=== PATIENT | female | born 1990 | race Hispanic/Latino ===

== ENCOUNTER 2022-03-14 01:45 | Emergency (ER) | payer MEDICAID, OTHER ==
[~2022-03-14] VITALS: Ht 167.6 cm; Wt 81.6 kg
[2022-03-14] MEDS ORDERED: TETRACAINE HCL 0.5% 4 ML OPHTH SOLN ONE ×2 (01:57→02:07)
[2022-03-14 02:00] VITALS: BP 129/60
[2022-03-14] MEDS ORDERED: FLUORESCEIN SODIUM 1 STRIP STRIP ONE (02:15)
== END 2022-03-14 02:47 | disposition home or self-care (01) ==
LOC: EDH 01:45
DX: H57.12 Ocular pain, left eye (principal); Z98.51 Tubal ligation status

== ENCOUNTER 2024-08-04 03:20 | Emergency (ER) | payer OTHER ==
[~2024-08-04] VITALS: Ht 167.6 cm; Wt 78.9 kg
[2024-08-04] MEDS: 0.9%NACL 1000ML 1,185 ML IV ONE (03:49)
[2024-08-04] MEDS: acetaMINOPHEN 500 MG TABLET PO ONE (03:50)
[2024-08-04] MEDS: ketOROlac 30MG VIAL (30MG/ML) IVP ONE (03:50)
[2024-08-04 03:54] LABS: APPEARANCE,URINE CLEAR (CLEAR); BILIRUBIN,URINE NEGATIVE (NEGATIVE); COLOR,URINE COLORLESS (YELLOW); GLUCOSE, URINE (UA) NEGATIVE (NEGATIVE); KETONES,URINE NEGATIVE (NEGATIVE); LEUKOCYTE ESTERASE ,URINE 25 Leu/uL (NEGATIVE); NITRATE,URINE NEGATIVE (NEGATIVE); OCCULT BLOOD,URINE NEGATIVE (NEGATIVE); PROTEIN,URINE NEGATIVE (NEGATIVE); UROBILINOGEN,URINE 0.2 mg/dL (0.2-1.0)
[2024-08-04 04:00] LABS: RAPID GROUP A STREP negative (NEGATIVE)
[2024-08-04 04:12] LABS: ADD UA MICROSCOPIC YES
[2024-08-04 04:13] LABS: BACTERIA,URINE MOD /HPF (None Seen); HCG,QUALITATIVE URINE NEGATIVE (NEGATIVE); RBC,URINE 0-1 /HPF (0-1); SQUAMOUS EPITHELIAL CELL,UR RARE /HPF (0-2)
[2024-08-04 04:14] LABS: COVID19 (SARS ANTIGEN RAPID) PRESUMPTIVE NEGATIVE (NEGATIVE)
[2024-08-04 04:18] LABS: INFLUENZA TYPE A Negative For Type A (NEGATIVE); INFLUENZA TYPE B Negative For Type B (NEGATIVE)
[2024-08-04 04:25] LABS: BASOPHILS # (AUTO) 0.03 K/uL (0.00-0.20); BASOPHILS % (AUTO) 0.3 % (0.0-5.0); EOSINOPHILS % (AUTO) 3.3 % (0.0-8.0); IMMATURE GRANULOCYTE ABSOLUTE 0.19 K/uL (0-1); LYMPHOCYTES # (AUTO) 2.2 K/uL (1.0-4.8); LYMPHOCYTES % (AUTO) 23.9 % (21.0-51.0); MEAN CORPUSCULAR HEMOGLOBIN 26.5 pg (27.0-33.0); MEAN CORPUSCULAR HGB CONC 32.1 g/dL (32.0-36.0); MEAN CORPUSCULAR VOLUME 82.4 fL (79-99); MONOCYTES # (AUTO) 0.6 K/uL (0.1-1.0); NEUTROPHILS # (AUTO) 5.8 K/uL (1.8-7.7); NEUTROPHILS % (AUTO) 63.4 % (40.0-77.0); NUCLEATED RED BLOOD CELLS 0.2 % (0.0-0.19); PLATELET COUNT (AUTO) 375 K/uL (130-400); RED CELL DISTRIBUTION WIDTH 16.1 % (11.0-15.5); WHITE BLOOD COUNT (AUTO) 9.2 K/uL (4.8-10.8)
[2024-08-04 04:28] LABS: CREATININE 0.8 mg/dL (0.5-1.0); POTASSIUM 3.5 mmol/L (3.5-5.1)
--- NOTE | 2024-08-04 04:43 | ERN ---
ED Note History of Present Illness Stated Complaint: POST-OP PROBLEM Chief Complaint: Post-Op Problem Time Seen by MD: 03:34 Allergies: Coded Allergies: No Known Drug Allergies (Unverified Allergy, Unknown, 08/02/16) Home Meds No Active Prescriptions or Reported Meds Past Medical History Dictation 33-year-old female with past medical history of recent presenting by left presents with concerns for headache and rapid heart rate following procedure. Patient denies fevers, nausea, vomiting diaphoresis, syncope, presyncope, shortness of breath, focal weakness Past Medical History: Anemia Surgical History: Other, BTL Surgical History Other: [place]T LIFT History: Not Applicable LMP: Jul 12, 2024 : 2 Para: 2 Aborts: 0 Review of System Dictation See HPI Initial Vital Sign VS Vital Signs Date Time Temp Pulse Resp B/P (MAP) Pulse Ox O2 Delivery O2 Flow Rate FiO2 08/04/24 03:22 99.3 124 18 124/84 98 Room Air 0 08/04/24 04:10 21 Physical Exam Dictation Well-appearing, no acute distress, tachycardic, regular rhythm, lungs clear to auscultation, symmetrical breath sounds, afebrile, abdomen is soft, nontender, non peritoneal Results (Laboratory/Radiology) Laboratory/Radiology Laboratory Tests Test 08/04/24 03:38 08/04/24 03:45 08/04/24 04:00 Influenza Type A Antigen Negative For Type A Influenza Type B Antigen Negative For Type B SARS-CoV-2 Antigen (Rapid) PRESUMPTIVE NEGATIVE Group A Streptococcus Rapid negative (NEGATIVE) Urine Color COLORLESS (YELLOW) Urine Appearance CLEAR (CLEAR) Urine pH 6.0 (5.0-8.0) Urine Specific [place] 1.005 (1.001-1.031) Urine Protein NEGATIVE mg/dL (NEGATIVE) Urine Glucose (UA) NEGATIVE mg/dL (NEGATIVE) Urine Ketones NEGATIVE mg/dL (NEGATIVE) Urine Occult Blood NEGATIVE (NEGATIVE) Urine Nitrate NEGATIVE (NEGATIVE) Urine Bilirubin NEGATIVE mg/dL (NEGATIVE) Urine Urobilinogen 0.2 mg/dL (0.2-1.0) Urine Leukocyte Esterase 25 [place]/uL (NEGATIVE) H Urine RBC 0-1 /HPF (0-1) Urine WBC 2-5 /HPF (0-1) H Urine Squamous Epithelial Cells RARE /HPF (0-2) Urine Bacteria MOD /HPF (None Seen) Urine HCG, Qualitative NEGATIVE (NEGATIVE) White Blood Count 9.2 K/uL (4.8-10.8) Red Blood Count 3.40 MIL/uL (4.00-5.50) L Hemoglobin 9.0 g/dL (12.0-16.0) L Hematocrit 28.0 % (36-48) L Mean Corpuscular Volume 82.4 fL (79-99) Mean Corpuscular Hemoglobin 26.5 pg (27.0-33.0) L Mean Corpuscular Hemoglobin Concent 32.1 g/dL (32.0-36.0) Red Cell Distribution Width 16.1 % (11.0-15.5) H Platelet Count 375 K/uL (130-400) Mean Platelet Volume 9.3 fL (7.5-10.5) Immature Granulocyte % (Auto) 2.1 % (0-1) H Neutrophils (%) (Auto) 63.4 % (40.0-77.0) Lymphocytes (%) (Auto) 23.9 % (21.0-51.0) Monocytes (%) (Auto) 7.0 % (3.0-13.0) Eosinophils (%) (Auto) 3.3 % (0.0-8.0) Basophils (%) (Auto) 0.3 % (0.0-5.0) Neutrophils # (Auto) 5.8 K/uL (1.8-7.7) Lymphocytes # (Auto) 2.2 K/uL (1.0-4.8) Monocytes # (Auto) 0.6 K/uL (0.1-1.0) Eosinophils # (Auto) 0.30 K/uL (0.00-0.70) Basophils # (Auto) 0.03 K/uL (0.00-0.20) Absolute Immature Granulocyte (auto 0.19 K/uL (0-1) Nucleated Red Blood Cells 0.2 % (0.0-0.19) H Sodium Level 139 mmol/L (136-145) Potassium Level 3.5 mmol/L (3.5-5.1) Chloride Level 106 mmol/L (101-111) Carbon Dioxide Level 27 mmol/L (21-32) Blood Urea Nitrogen 12 mg/dL (7-18) Creatinine 0.8 mg/dL (0.5-1.0) Glomerular Filtration Rate Calc 101 mL/min (>90) Random Glucose 110 mg/dL (70-105) H Total Calcium 7.9 mg/dL (8.5-10.1) L ED Course ED Course Orders Procedure Category Date Status Time Influenza Type A & B, LAB 08/04/24 Complete Rapid 03:34 Covid19 (Sars Antigen LAB 08/04/24 Complete Rapid) 03:34 Rapid (Group A Strep) LAB 08/04/24 Complete 03:34 Acetaminophen 500mg PHA 08/04/24 Complete Tab (Tylenol 500mg T 04:00 Urinalysis Profile LAB 08/04/24 Complete 03:35 ,Urine Test LAB 08/04/24 Complete 03:35 Cbc With Differential LAB 08/04/24 Complete 03:34 Basic Metabolic Panel LAB 08/04/24 Complete 03:34 Chest 1vw RAD 08/04/24 Taken 03:34 0.9%Nacl 1000ml (Ns PHA 08/04/24 In Process 1000ml) 04:00 Ketorolac PHA 08/04/24 Complete Tromethamine 30mg/Ml 04:00 Current Medications Medications (Trade) Dose Ordered Sig/Kimber Route PRN Reason Start Time Stop Time Status Last Admin Dose Admin Acetaminophen (TYLenol 500MG TAB) 1,000 mg ONCE ONCE PO 08/04/24 04:00 08/04/24 04:01 DC 08/04/24 03:50 Ketorolac Tromethamine (toRADol) 30 mg ONCE ONCE IVP 08/04/24 04:00 08/04/24 04:01 DC 08/04/24 03:50 Sodium Chloride 1,185 ml @ 395 mls/hr ONCE ONCE IV 08/04/24 04:00 08/04/24 06:59 08/04/24 03:49 Vital Signs Date Time Temp Pulse Resp B/P (MAP) Pulse Ox O2 Delivery O2 Flow Rate FiO2 08/04/24 04:10 98.4 99 18 105/65 99 Room Air* 0 21 08/04/24 03:22 99.3 124 18 124/84 98 Room Air 0 Medical Decision Making MDM ddx: Migraine versus sepsis versus flu versus COVID versus URi versus pyelonephritis Chest x-ray shows no acute cardiopulmonary pathology. Doubt pneumonia. Doubt CHF. Kidney function within normal limits. Doubt МАРИЯ. White blood cell count within normal limits. Doubt bacterial infection. UA negative for infection. Doubt UTI. HCG negative . Doubt ectopic . Rapid flu negative. Rapid COVID negative. Upon re-evaluation, patient's symptoms improved fluids. Discussed ED workup with patient. Return precautions given. Invited and answered all questions. Discharge. Patient will follow up with the plastic surgeon as well as primary care physician. DX & DISP Disposition: Discharge Departure Impression: Primary Impression: Acute headache Additional Impression: Tachycardia Condition: Stable Scripts No Active Prescriptions or Reported Meds Additional Instructions: Please follow up with surgeon in the next available appointment. Please return to emergency department if fevers change in mental status, productive cough nausea, abdominal, spreading redness or pus to area of surgical incisions. Please drink lots of fluids Referrals: SOL CRAIG (PCP) Time of Disposition: 04:46 ANA MARIA WELDON DO Aug 04, 2024 04:43
[2024-08-04 04:54] VITALS: BP 112/53; PULSE 95; RESP 18; TEMP 98.5; O2SAT 98
[2024-08-04] MEDS: metoCLOPRAmide 10 MG/2 ML VIAL IM ONE (04:55)
--- NOTE | 2024-08-04 08:54 | HMCIMG ---
Exam Type: CHEST 1VW Clinical Information: cp Comparison: None Findings: The lungs are clear of infiltrates. The heart is normal in size. The bony and soft tissue structures of the chest are unremarkable. Impression: Clear lungs.
== END 2024-08-04 05:07 | disposition home or self-care (01) ==
LOC: EDH 03:20
DX: R51.9 Headache, unspecified (principal); R00.0 Tachycardia, unspecified; Z20.822 Contact with and (suspected) exposure to COVID-19; Z98.51 Tubal ligation status; Z98.890 Other specified postprocedural states
CPT/HCPCS: 99284; 96374; 71045; 96361; 87426; 80048; 85025; 87880; 87804 ×2; 81001; 81025; 36415; 96372; J7030; J1885; J2765